=== PATIENT | female | born 1955 | race Caucasian/White ===

== ENCOUNTER 2019-05-06 09:47 | Inpatient (IN) ==
[2019-05-06] MEDS ORDERED: SODIUM CHLORIDE 0.9% 2,000 ML IV STA (10:17)
[2019-05-06] MEDS ORDERED: SODIUM BICARBONATE 50 MEQ/50 ML VIAL IV STA ×2 (10:23→11:39)
[2019-05-06] MEDS ORDERED: SODIUM BICARBONATE 50 MEQ/50 ML SYRINGE IV ONE ×2 (10:24→11:39)
[2019-05-06 10:33] LABS: Basophils # 0.1 10*3/uL (0.0-0.2); Basophils % 0.4 % (0.0-0.8); Eosinophils % 0.1 % (0.00-10.9); Hematocrit 29.9 VOL% (35.7-47.0); Hemoglobin 9.9 GM/DL (12.0-16.0); INR 1.2; Immature Granulocytes % 2.1 %; Immature Granulocytes Absolute 0.28 #; Lymphocytes # 0.9 10*3/uL (1.4-4.0); Mean Corpuscular HGB Conc 33.1 GM/DL (32-36); Mean Corpuscular Volume 97.4 FL (87-102); Mean Platelet Volume 10.2 FL (9.6-12.0); Neutrophils % 84.4 % (38.7-73.9); PT Patient Result 12.6 SECS (9.6-12.2); Platelet Count 150 T/CUMM (130-400); Red Blood Count 3.07 MC/CUMM (3.8-5.5); Red Cell Distribution Width 13.5 % (9.3-17.3); White Blood Count 13.4 T/CUMM (4-12)
[2019-05-06 10:35] LABS: Albumin 1.8 G/DL (3.4-5.0); Bilirubin,Total 0.7 MG/DL (0.2-1.0); Calcium 6.4 MG/DL (8.5-10.1); Osmolality,Calculated 279.8 MOS/KG (273-304); Total Protein 4.7 G/DL (6.4-8.3)
[2019-05-06 10:47] LABS: Apearance,Urine CLEAR (Clear); Bacteria,Urine Occasional /HPF (Few); Bilirubin,Urine Negative (Negative); Blood, Urine Small mg/dL (Negative); Glucose,Urine (UA) Negative (Negative); Ketones,Urine 5 mg/dL (Negative); Nitrite,Urine Negative (Negative); Protein,Urine Negative; RBC,Urine <1 /HPF (0-4); Urine Color Yellow (Yellow); Urine Specific Gravity 1.011 (1.001-1.035); Urine Urobilinogen < 2.0 EU/DL (0.2-1.0); WBC,Urine 1 /HPF (0-6)
[2019-05-06] MEDS ORDERED: DOPamine 800 MG/250 ML PREMIX IV ONE (10:53)
[2019-05-06] MEDS ORDERED: POTASSIUM CHLORIDE RIDER 100 ML IV ONE ×2 (10:54→12:09)
[2019-05-06 10:55] LABS: Barbiturates Screen,Urine Negative (Negative); Benzodiazepines Screen,Urine Negative (Negative); Cannabinoid Screen,Urine Negative (Negative); Opiate Screen,Urine Negative (Negative); Phencyclidine Screen,Urine Negative (Negative)
[2019-05-06 10:55] LABS: CKMB % 1.7 %; Troponin I < 0.015 NG/ML (0.00-0.045)
[2019-05-06] MEDS ORDERED: POTASSIUM CHLORIDE RIDER 20 MEQ in PREMIX 1 EACH IV STA (10:59)
[2019-05-06] MEDS ORDERED: DOPamine 800 MG/250 ML PREMIX IV PRN (10:59)
[2019-05-06 11:17] LABS: Band Neutrophils 8 % (0-10); Burr Cells 1+; Lymphocytes 6 % (20-55); Platelet Estimate Adequate; Polychromasia Slight; Segmented Neutrophils 85 % (50-85); Total Cells Counted 100
[2019-05-06] MEDS ORDERED: SODIUM CHLORIDE 0.9% 1,000 ML IV STA (11:39)
[2019-05-06 13:23] LABS: Basophils # 0.2 10*3/uL (0.0-0.2); Basophils % 0.8 % (0.0-0.8); Hematocrit 36.4 VOL% (35.7-47.0); Immature Granulocytes % 2.1 %; Immature Granulocytes Absolute 0.44 #; Lymphocytes # 0.9 10*3/uL (1.4-4.0); Lymphocytes % 4.2 % (21.3-54.2); Mean Corpuscular HGB Conc 33.2 GM/DL (32-36); Mean Corpuscular Volume 95.3 FL (87-102); Mean Platelet Volume 9.9 FL (9.6-12.0); Monocytes % 5.4 % (1.7-12.7); Neutrophils % 87.5 % (38.7-73.9); Platelet Count 201 T/CUMM (130-400); Red Blood Count 3.82 MC/CUMM (3.8-5.5); Red Cell Distribution Width 13.5 % (9.3-17.3)
[2019-05-06] MEDS ORDERED: CIPROFLOXACIN 500 MG TABLET PO SCH (13:30)
[2019-05-06 13:31] LABS: Hemoglobin 12.1 GM/DL (12.0-16.0)
[2019-05-06 13:32] LABS: Calcium 6.3 MG/DL (8.5-10.1); Osmolality,Calculated 283.5 MOS/KG (273-304)
[2019-05-06] MEDS ORDERED: NOREPINEPHRINE 4 MG/4 ML VIAL IV ONE (13:43)
[2019-05-06 13:51] LABS: Band Neutrophils 3 % (0-10); Lymphocytes 3 % (20-55); Macrocytosis Slight; Platelet Estimate Adequate; Polychromasia Slight; Segmented Neutrophils 87 % (50-85); Total Cells Counted 100
[2019-05-06] MEDS: NOREPINEPHRINE 8 MG in SODIUM CHLORIDE 0.9% 242 ML IV PRN ×2 (14:30→20:37)
[2019-05-06] MEDS ORDERED: MAGNESIUM SULF RIDER 4 GM in PREMIX 1 EACH IV PRN (15:44)
[2019-05-06] MEDS ORDERED: DIPHENOXYLATE/ATROPINE 2.5-0.025 MG TABLET PO PRN (16:10)
[2019-05-06] MEDS ORDERED: CHOLESTYRAMINE 4 GM PACK PO SCH (16:30)
[2019-05-06] MEDS: MEROPENEM 1,000 MG in SODIUM CHLORIDE 0.9% 100 ML IV SCH (16:40)
[2019-05-06] MEDS ORDERED: CALCIUM GLUCONATE 1,000 MG in SODIUM CHLORIDE 0.9% 100 ML IV ONE (17:00)
[2019-05-06] MEDS: SODIUM CHLOR 0.9% KCL 40 MEQ 40 MEQ/1,000 ML BAG IV SCH (17:09)
[2019-05-06] MEDS: MAGNESIUM SULF RIDER 2 GM in PREMIX 1 EACH IV PRN (17:21)
[2019-05-06] MEDS: MAGNESIUM OXIDE 400 MG TABLET PO SCH (20:34)
[2019-05-06] MEDS: CALCIUM CARBONATE CHEW 500 MG TABLET PO SCH (20:34)
[2019-05-06] MEDS: POTASSIUM CHLORIDE 10 MEQ TABLET PO SCH (20:34)
[2019-05-06] MEDS: ENOXAPARIN 30 MG/0.3 ML SYRINGE SUBCUT SCH (20:34)
[2019-05-07] MEDS: SODIUM CHLOR 0.9% KCL 40 MEQ 40 MEQ/1,000 ML BAG IV SCH ×2 (01:33→09:36)
[2019-05-07] MEDS: NOREPINEPHRINE 8 MG in SODIUM CHLORIDE 0.9% 242 ML IV PRN ×2 (02:23→08:51)
[2019-05-07] MEDS: MEROPENEM 1,000 MG in SODIUM CHLORIDE 0.9% 100 ML IV SCH ×2 (08:37→17:50)
[2019-05-07] MEDS: CALCIUM CARBONATE CHEW 500 MG TABLET PO SCH ×2 (09:06→21:33)
[2019-05-07] MEDS: POTASSIUM CHLORIDE 10 MEQ TABLET PO SCH ×2 (09:06→22:33)
[2019-05-07] MEDS: MAGNESIUM OXIDE 400 MG TABLET PO SCH ×2 (09:07→21:34)
[2019-05-07 09:24] LABS: Basophils # 0.2 10*3/uL (0.0-0.2); Basophils % 0.7 % (0.0-0.8); Hematocrit 42.1 VOL% (35.7-47.0); Hemoglobin 14.1 GM/DL (12.0-16.0); Immature Granulocytes % 4.7 %; Immature Granulocytes Absolute 1.11 #; Lymphocytes # 1.4 10*3/uL (1.4-4.0); Lymphocytes % 5.8 % (21.3-54.2); Mean Corpuscular HGB Conc 33.5 GM/DL (32-36); Mean Corpuscular Volume 95.2 FL (87-102); Monocytes % 5.6 % (1.7-12.7); Neutrophils % 83.2 % (38.7-73.9); Platelet Count 247 T/CUMM (130-400); Red Blood Count 4.42 MC/CUMM (3.8-5.5); Red Cell Distribution Width 13.9 % (9.3-17.3); White Blood Count 23.8 T/CUMM (4-12)
[2019-05-07 09:42] LABS: Band Neutrophils 4 % (0-10); Lymphocytes 6 % (20-55); Platelet Estimate Adequate; Segmented Neutrophils 84 % (50-85); Total Cells Counted 100
[2019-05-07 10:05] LABS: Albumin 1.7 G/DL (3.4-5.0); Bilirubin,Total 0.5 MG/DL (0.2-1.0); Calcium 6.6 MG/DL (8.5-10.1); Osmolality,Calculated 275.1 MOS/KG (273-304); Total Protein 5.1 G/DL (6.4-8.3)
[2019-05-07] MEDS: VANCOMYCIN 50 MG/ML 60 ML/BOTTLE PO SCH ×2 (11:08→18:10)
[2019-05-07] MEDS ORDERED: FUROSEMIDE 20 MG/2 ML VIAL IV ONE (12:59)
[2019-05-07] MEDS ORDERED: ZINC OXIDE PASTE 113 GM TUBE TOP PRN (13:01)
[2019-05-07] MEDS: SODIUM CHLORIDE 0.9% 1,000 ML IV SCH (13:02)
[2019-05-07 14:37] LABS: Calcium 6.5 MG/DL (8.5-10.1)
[2019-05-07] MEDS: ENOXAPARIN 30 MG/0.3 ML SYRINGE SUBCUT SCH (21:34)
[2019-05-07] MEDS ORDERED: ALBUMIN 25% 25 GM in PREMIX 1 EACH IV ONE (22:46)
[2019-05-07 23:18] LABS: ABG Base Excess -14.1 MMOL/L (-2.5-2.5); ABG HCO3 13.8 MMOL/L (20-26); ABG Oxygen Saturation 92.9 % (95-100); ABG PH 7.314 (7.35-7.45); ABG PO2 68.8 MM HG (80-95); ABG TCO2 9.2 MMOL/L (23-27); Allen Test Positive
[2019-05-07 23:30] LABS: ABG PCO2 20.8 MM HG (35-48)
[2019-05-08] MEDS ORDERED: ALBUMIN 25% 25 GM in PREMIX 1 EACH IV ONE (00:29)
[2019-05-08] MEDS ORDERED: FUROSEMIDE 40 MG/4 ML VIAL IV ONE ×2 (00:30→01:30)
[2019-05-08] MEDS: SODIUM CHLORIDE 0.9% 1,000 ML IV SCH ×4 (00:40→23:20)
[2019-05-08] MEDS: VANCOMYCIN 50 MG/ML 60 ML/BOTTLE PO SCH ×5 (00:42→23:22)
[2019-05-08] MEDS: MEROPENEM 1,000 MG in SODIUM CHLORIDE 0.9% 100 ML IV SCH (04:15)
[2019-05-08] MEDS ORDERED: ALBUTEROL/IPRATROPIUM 3 ML NEB RESP TX PRN (04:24)
[2019-05-08 06:09] LABS: Basophils # 0.2 10*3/uL (0.0-0.2); Basophils % 0.8 % (0.0-0.8); Hematocrit 38.5 VOL% (35.7-47.0); Hemoglobin 12.6 GM/DL (12.0-16.0); Immature Granulocytes % 4.6 %; Immature Granulocytes Absolute 1.07 #; Lymphocytes # 1.4 10*3/uL (1.4-4.0); Lymphocytes % 5.8 % (21.3-54.2); Mean Corpuscular HGB Conc 32.7 GM/DL (32-36); Mean Platelet Volume 9.9 FL (9.6-12.0); Monocytes % 4.4 % (1.7-12.7); Neutrophils % 84.4 % (38.7-73.9); Platelet Count 230 T/CUMM (130-400); Red Blood Count 4.01 MC/CUMM (3.8-5.5); Red Cell Distribution Width 14.3 % (9.3-17.3); White Blood Count 23.3 T/CUMM (4-12)
[2019-05-08 06:19] LABS: Band Neutrophils 6 % (0-10); Lymphocytes 7 % (20-55); Metamyelocytes 1 %; Segmented Neutrophils 84 % (50-85); Total Cells Counted 100
[2019-05-08 06:20] LABS: Microcytosis 1+; Platelet Estimate Normal
[2019-05-08 08:07] LABS: Calcium 6.9 MG/DL (8.5-10.1); Osmolality,Calculated 275.2 MOS/KG (273-304)
[2019-05-08] MEDS ORDERED: FUROSEMIDE 20 MG/2 ML VIAL IV ONE (08:56)
[2019-05-08] MEDS: CALCIUM CARBONATE CHEW 500 MG TABLET PO SCH ×2 (09:17→21:27)
[2019-05-08] MEDS: POTASSIUM CHLORIDE 10 MEQ TABLET PO SCH ×2 (09:17→21:27)
[2019-05-08] MEDS: MAGNESIUM OXIDE 400 MG TABLET PO SCH ×2 (09:17→21:27)
[2019-05-08] MEDS: ALBUTEROL/IPRATROPIUM 3 ML NEB RESP TX SCH ×3 (14:03→22:59)
[2019-05-08] MEDS: ENOXAPARIN 30 MG/0.3 ML SYRINGE SUBCUT SCH (21:26)
[2019-05-09] MEDS: ALBUTEROL/IPRATROPIUM 3 ML NEB RESP TX SCH ×5 (04:04→20:20)
[2019-05-09] MEDS ORDERED: FUROSEMIDE 40 MG/4 ML VIAL IV ONE (04:35)
[2019-05-09] MEDS ORDERED: methylPREDNISolone SOD SUC 40 MG/1 ML VIAL ONE (04:50)
[2019-05-09] MEDS: methylPREDNISolone SOD SUC 40 MG/1 ML VIAL IV SCH ×3 (04:59→20:36)
[2019-05-09] MEDS: VANCOMYCIN 50 MG/ML 60 ML/BOTTLE PO SCH ×3 (05:05→18:02)
[2019-05-09] MEDS: metroNIDAZOLE INJ 500 MG in PREMIX 1 EACH IV SCH ×3 (05:05→20:35)
[2019-05-09 05:21] LABS: ABG Base Excess -10.2 MMOL/L (-2.5-2.5); ABG HCO3 16.4 MMOL/L (20-26); ABG Oxygen Saturation 93.9 % (95-100); ABG PCO2 22.2 MM HG (35-48); ABG PO2 69.9 MM HG (80-95); ABG TCO2 11.4 MMOL/L (23-27)
[2019-05-09] MEDS: CALCIUM CARBONATE CHEW 500 MG TABLET PO SCH ×2 (08:19→20:38)
[2019-05-09] MEDS: MAGNESIUM OXIDE 400 MG TABLET PO SCH ×2 (08:19→20:38)
[2019-05-09] MEDS: POTASSIUM CHLORIDE 10 MEQ TABLET PO SCH ×2 (08:19→20:38)
[2019-05-09 09:12] LABS: ABG Base Excess -11.2 MMOL/L (-2.5-2.5); ABG HCO3 11.3 MMOL/L (20-26); ABG Oxygen Saturation 91.6 % (95-100); ABG PH 7.382 (7.35-7.45); ABG PO2 62.9 MM HG (80-95); ABG TCO2 11.9 MMOL/L (23-27); Allen Test Positive; Pt O2 Delivery Device Other
[2019-05-09 09:15] LABS: ABG PCO2 19.4 MM HG (35-48)
[2019-05-09 13:34] LABS: Albumin 2.2 G/DL (3.4-5.0); Bilirubin,Total 0.4 MG/DL (0.2-1.0); Calcium 7.8 MG/DL (8.5-10.1); Osmolality,Calculated 279.4 MOS/KG (273-304); Total Protein 5.6 G/DL (6.4-8.3)
[2019-05-09 13:35] LABS: Hematocrit 35.9 VOL% (35.7-47.0); Hemoglobin 12.3 GM/DL (12.0-16.0); Immature Granulocytes % 6.5 %; Immature Granulocytes Absolute 1.51 #; Lymphocytes % 4.5 % (21.3-54.2); Mean Corpuscular HGB Conc 34.3 GM/DL (32-36); Mean Corpuscular Volume 93.7 FL (87-102); Mean Platelet Volume 9.7 FL (9.6-12.0); Monocytes % 1.5 % (1.7-12.7); NRBC # 0.02 10*3/uL; Neutrophils % 87.5 % (38.7-73.9); Platelet Count 168 T/CUMM (130-400); Red Blood Count 3.83 MC/CUMM (3.8-5.5); Red Cell Distribution Width 14.4 % (9.3-17.3); White Blood Count 23.3 T/CUMM (4-12)
[2019-05-09] MEDS: SODIUM CHLORIDE 0.9% 1,000 ML IV SCH (13:35)
[2019-05-09] MEDS: SODIUM BICARB INJ 100 MEQ in SODIUM CHLORIDE 0.45% 1,000 ML IV SCH (13:37)
[2019-05-09 13:56] LABS: Band Neutrophils 10 % (0-10); Lymphocytes 3 % (20-55); Macrocytosis Slight; Metamyelocytes 1 %; Platelet Estimate Normal; Segmented Neutrophils 85 % (50-85); Total Cells Counted 100; Toxic Granulation 1+
[2019-05-09] MEDS: ENOXAPARIN 30 MG/0.3 ML SYRINGE SUBCUT SCH (20:36)
[2019-05-10] MEDS: VANCOMYCIN 50 MG/ML 60 ML/BOTTLE PO SCH ×4 (00:13→18:39)
[2019-05-10] MEDS: ALBUTEROL/IPRATROPIUM 3 ML NEB RESP TX SCH ×7 (00:20→23:35)
[2019-05-10] MEDS: metroNIDAZOLE INJ 500 MG in PREMIX 1 EACH IV SCH ×3 (04:15→21:50)
[2019-05-10] MEDS: methylPREDNISolone SOD SUC 40 MG/1 ML VIAL IV SCH ×3 (05:11→21:50)
[2019-05-10 05:19] LABS: Hematocrit 38.5 VOL% (35.7-47.0); Hemoglobin 13.2 GM/DL (12.0-16.0); Immature Granulocytes % 8.1 %; Immature Granulocytes Absolute 1.85 #; Lymphocytes # 1.1 10*3/uL (1.4-4.0); Lymphocytes % 4.7 % (21.3-54.2); Mean Corpuscular HGB Conc 34.3 GM/DL (32-36); Mean Corpuscular Volume 92.1 FL (87-102); Mean Platelet Volume 9.5 FL (9.6-12.0); Monocytes % 2.2 % (1.7-12.7); NRBC # 0.06 10*3/uL; Platelet Count 227 T/CUMM (130-400); Red Blood Count 4.18 MC/CUMM (3.8-5.5); Red Cell Distribution Width 14.1 % (9.3-17.3); White Blood Count 22.8 T/CUMM (4-12)
[2019-05-10 05:46] LABS: Band Neutrophils 2 % (0-10); Hypochromasia Slight; Lymphocytes 4 % (20-55); Nucleated Red Blood Cells 1 (0-5); Platelet Estimate Adequate; Segmented Neutrophils 88 % (50-85); Total Cells Counted 100
[2019-05-10 05:47] LABS: Microcytosis Slight
[2019-05-10 05:56] LABS: Albumin 2.2 G/DL (3.4-5.0); Bilirubin,Total 0.4 MG/DL (0.2-1.0); Calcium 8.5 MG/DL (8.5-10.1); Osmolality,Calculated 282.1 MOS/KG (273-304); Total Protein 5.3 G/DL (6.4-8.3)
[2019-05-10] MEDS: BISACODYL 5 MG TABLET PO SCH ×3 (07:37→23:18)
[2019-05-10] MEDS: POTASSIUM CHLORIDE 10 MEQ TABLET PO SCH ×2 (09:00→21:50)
[2019-05-10] MEDS: CALCIUM CARBONATE CHEW 500 MG TABLET PO SCH ×2 (09:00→21:50)
[2019-05-10] MEDS: MAGNESIUM OXIDE 400 MG TABLET PO SCH ×2 (09:00→21:50)
[2019-05-10] MEDS ORDERED: GLUCAGON 1 MG VIAL IM PRN (13:29)
[2019-05-10] MEDS ORDERED: DEXTROSE 10% 250 ML BAG IV PRN (13:29)
[2019-05-10] MEDS: SODIUM BICARB INJ 100 MEQ in SODIUM CHLORIDE 0.45% 1,000 ML IV SCH ×2 (14:44→14:50)
[2019-05-10] MEDS: FAT EMULSION 20% 250 ML IV SCH (14:45)
[2019-05-10] MEDS ORDERED: DEXTROSE 10% 1,000 ML IV PRN (16:00)
[2019-05-10 16:34] LABS: Lymphocytes,Pleural Fluid 12 %; Monocytes,Pleural Fluid 1 %; Neutrophils,Pleural Fluid 87 %; RBC,Pleural Fluid 219 T/CUMM
[2019-05-10] MEDS: TRACE ELEMENTS (5) 1 ML, MULTIVITAMIN INJ 10 ML in AMINO ACIDS 10% 700 ML, DEXTROSE 70%... IV SCH (17:33)
[2019-05-10] MEDS: INSULIN REGULAR 100 UNIT/ML SUBCUT SCH (17:48)
[2019-05-10] MEDS ORDERED: POLYETHYLENE GLYCOL POWDER 255 GM BOTTLE PO ONE (18:00)
[2019-05-10] MEDS: ENOXAPARIN 40 MG/0.4 ML SYRINGE SUBCUT SCH (21:50)
[2019-05-11] MEDS: VANCOMYCIN 50 MG/ML 60 ML/BOTTLE PO SCH ×5 (00:56→23:48)
[2019-05-11] MEDS: INSULIN REGULAR 100 UNIT/ML SUBCUT SCH ×5 (00:56→23:49)
[2019-05-11] MEDS: ALBUTEROL/IPRATROPIUM 3 ML NEB RESP TX SCH ×6 (03:02→23:40)
[2019-05-11] MEDS: metroNIDAZOLE INJ 500 MG in PREMIX 1 EACH IV SCH (05:20)
[2019-05-11] MEDS: methylPREDNISolone SOD SUC 40 MG/1 ML VIAL IV SCH (05:30)
[2019-05-11 05:32] LABS: Basophils % 0.1 % (0.0-0.8); Hematocrit 39.8 VOL% (35.7-47.0); Hemoglobin 13.3 GM/DL (12.0-16.0); Immature Granulocytes % 8.4 %; Lymphocytes # 1.1 10*3/uL (1.4-4.0); Lymphocytes % 3.7 % (21.3-54.2); Mean Corpuscular HGB Conc 33.4 GM/DL (32-36); Mean Corpuscular Volume 93.9 FL (87-102); Mean Platelet Volume 9.7 FL (9.6-12.0); Monocytes % 3.6 % (1.7-12.7); NRBC # 0.16 10*3/uL; Neutrophils % 84.2 % (38.7-73.9); Platelet Count 242 T/CUMM (130-400); Red Blood Count 4.24 MC/CUMM (3.8-5.5); Red Cell Distribution Width 14.4 % (9.3-17.3); White Blood Count 28.6 T/CUMM (4-12)
[2019-05-11 05:56] LABS: Albumin 2.3 G/DL (3.4-5.0); Bilirubin,Total 0.4 MG/DL (0.2-1.0); Calcium 8.6 MG/DL (8.5-10.1); Osmolality,Calculated 291.4 MOS/KG (273-304); Total Protein 5.1 G/DL (6.4-8.3)
[2019-05-11 05:59] LABS: Lymphocytes 3 % (20-55); Platelet Estimate Normal; Segmented Neutrophils 95 % (50-85); Total Cells Counted 100
[2019-05-11 06:00] LABS: Prealbumin 9.3 MG/DL (20-40)
[2019-05-11] MEDS ORDERED: KETAMINE 500 MG/10 ML VIAL ONE (08:25)
[2019-05-11] MEDS ORDERED: MIDAZOLAM 2 MG/2 ML VIAL ONE (08:26)
[2019-05-11] MEDS ORDERED: ONDANSETRON 4 MG/2 ML VIAL ONE (08:55)
[2019-05-11] MEDS ORDERED: ONDANSETRON 4 MG/2 ML VIAL IV PRN (09:01)
[2019-05-11] MEDS: SODIUM BICARB INJ 100 MEQ in SODIUM CHLORIDE 0.45% 1,000 ML IV SCH (10:01)
[2019-05-11] MEDS: CALCIUM CARBONATE CHEW 500 MG TABLET PO SCH ×2 (10:01→20:16)
[2019-05-11] MEDS: POTASSIUM CHLORIDE 10 MEQ TABLET PO SCH ×2 (10:03→20:17)
[2019-05-11] MEDS: MAGNESIUM OXIDE 400 MG TABLET PO SCH ×2 (10:03→20:17)
[2019-05-11] MEDS: FAT EMULSION 20% 250 ML IV SCH (15:10)
[2019-05-11] MEDS: TRACE ELEMENTS (5) 1 ML, MULTIVITAMIN INJ 10 ML in AMINO ACIDS 10% 700 ML, DEXTROSE 70%... IV SCH (16:14)
[2019-05-11] MEDS: ENOXAPARIN 40 MG/0.4 ML SYRINGE SUBCUT SCH (20:17)
[2019-05-12] MEDS: SODIUM BICARB INJ 100 MEQ in SODIUM CHLORIDE 0.45% 1,000 ML IV SCH (04:15)
[2019-05-12 04:19] LABS: Basophils % 0.1 % (0.0-0.8); Hemoglobin 14.2 GM/DL (12.0-16.0); Immature Granulocytes % 9.4 %; Immature Granulocytes Absolute 2.63 #; Lymphocytes % 10.8 % (21.3-54.2); Mean Corpuscular Volume 95.6 FL (87-102); Mean Platelet Volume 9.7 FL (9.6-12.0); Monocytes % 4.4 % (1.7-12.7); NRBC # 0.19 10*3/uL; Neutrophils % 75.3 % (38.7-73.9); Platelet Count 225 T/CUMM (130-400); Red Cell Distribution Width 14.4 % (9.3-17.3); White Blood Count 27.9 T/CUMM (4-12)
[2019-05-12 04:29] LABS: Albumin 2.1 G/DL (3.4-5.0); Bilirubin,Total 0.6 MG/DL (0.2-1.0); Calcium 7.9 MG/DL (8.5-10.1); Osmolality,Calculated 289.3 MOS/KG (273-304); Total Protein 4.3 G/DL (6.4-8.3)
[2019-05-12] MEDS: ALBUTEROL/IPRATROPIUM 3 ML NEB RESP TX SCH ×6 (04:33→23:36)
[2019-05-12 04:43] LABS: Hypochromasia 1+; Lymphocytes 12 % (20-55); Platelet Estimate Adequate; Segmented Neutrophils 84 % (50-85); Total Cells Counted 100
[2019-05-12 04:44] LABS: Microcytosis Slight
[2019-05-12] MEDS: VANCOMYCIN 50 MG/ML 60 ML/BOTTLE PO SCH ×3 (05:26→18:00)
[2019-05-12] MEDS: INSULIN REGULAR 100 UNIT/ML SUBCUT SCH ×4 (05:27→23:49)
[2019-05-12] MEDS: CALCIUM CARBONATE CHEW 500 MG TABLET PO SCH ×2 (09:02→20:17)
[2019-05-12] MEDS: POTASSIUM CHLORIDE 10 MEQ TABLET PO SCH ×2 (09:02→20:18)
[2019-05-12] MEDS: MAGNESIUM OXIDE 400 MG TABLET PO SCH (09:02)
[2019-05-12] MEDS: TRACE ELEMENTS (5) 1 ML, MULTIVITAMIN INJ 10 ML in AMINO ACIDS 10% 700 ML, DEXTROSE 70%... IV SCH (16:06)
[2019-05-12] MEDS: FAT EMULSION 20% 250 ML IV SCH (16:07)
[2019-05-12] MEDS: MAGNESIUM CHLORIDE 64 MG TABLET PO SCH (20:17)
[2019-05-12] MEDS: ENOXAPARIN 40 MG/0.4 ML SYRINGE SUBCUT SCH (20:18)
[2019-05-12] MEDS ORDERED: FUROSEMIDE 40 MG/4 ML VIAL IV ONE (21:24)
[2019-05-13] MEDS: VANCOMYCIN 50 MG/ML 60 ML/BOTTLE PO SCH ×4 (00:09→17:55)
[2019-05-13] MEDS: ALBUTEROL/IPRATROPIUM 3 ML NEB RESP TX SCH ×6 (02:15→23:48)
[2019-05-13] MEDS: SODIUM BICARB INJ 100 MEQ in SODIUM CHLORIDE 0.45% 1,000 ML IV SCH ×2 (04:16→17:14)
[2019-05-13 04:26] LABS: Basophils # 0.1 10*3/uL (0.0-0.2); Basophils % 0.6 % (0.0-0.8); Eosinophils # 0.1 10*3/uL (0.0-0.87); Eosinophils % 0.4 % (0.00-10.9); Hematocrit 39.6 VOL% (35.7-47.0); Hemoglobin 13.4 GM/DL (12.0-16.0); Immature Granulocytes % 8.2 %; Immature Granulocytes Absolute 1.74 #; Lymphocytes # 2.6 10*3/uL (1.4-4.0); Lymphocytes % 12.4 % (21.3-54.2); Mean Corpuscular HGB Conc 33.8 GM/DL (32-36); Mean Corpuscular Volume 91.7 FL (87-102); Mean Platelet Volume 9.6 FL (9.6-12.0); NRBC # 0.11 10*3/uL; Neutrophils % 74.4 % (38.7-73.9); Platelet Count 192 T/CUMM (130-400); Red Blood Count 4.32 MC/CUMM (3.8-5.5); Red Cell Distribution Width 14.3 % (9.3-17.3); White Blood Count 21.3 T/CUMM (4-12)
[2019-05-13 04:50] LABS: Band Neutrophils 2 % (0-10); Hypochromasia 1+; Lymphocytes 11 % (20-55); Microcytosis Slight; Platelet Estimate Adequate; Segmented Neutrophils 86 % (50-85); Total Cells Counted 100
[2019-05-13 05:20] LABS: Alanine Aminotransferase 35 U/L (13-56); Albumin 1.6 G/DL (3.4-5.0); Alkaline Phosphatase 59 U/L (45-117); Aspartate Amino Transferase 62 U/L (0-37); Bilirubin,Total < 0.39 MG/DL (0.2-1.0); Blood Urea Nitrogen 23 MG/DL (7-18); Calcium 7.5 MG/DL (8.5-10.1); Estimated Glom Filtration Rate 111 ML/MIN; Glucose 133 MG/DL (74-106); Osmolality,Calculated 278.8 MOS/KG (273-304); Total Protein 4.5 G/DL (6.4-8.3)
[2019-05-13] MEDS: INSULIN REGULAR 100 UNIT/ML SUBCUT SCH ×3 (05:37→17:55)
[2019-05-13] MEDS: POTASSIUM CHLORIDE RIDER 10 MEQ in PREMIX 1 EACH IV PRN ×4 (09:10→12:15)
[2019-05-13] MEDS: MAGNESIUM CHLORIDE 64 MG TABLET PO SCH ×2 (09:30→20:23)
[2019-05-13] MEDS: POTASSIUM CHLORIDE 10 MEQ TABLET PO SCH ×2 (09:30→20:24)
[2019-05-13] MEDS: CALCIUM CARBONATE CHEW 500 MG TABLET PO SCH ×2 (09:30→20:23)
[2019-05-13] MEDS: TRACE ELEMENTS (5) 1 ML, MULTIVITAMIN INJ 10 ML in AMINO ACIDS 10% 700 ML, DEXTROSE 70%... IV SCH (13:28)
[2019-05-13] MEDS: FAT EMULSION 20% 250 ML IV SCH (14:46)
[2019-05-13] MEDS: ENOXAPARIN 40 MG/0.4 ML SYRINGE SUBCUT SCH (20:23)
[2019-05-14] MEDS: VANCOMYCIN 50 MG/ML 60 ML/BOTTLE PO SCH ×4 (00:28→17:53)
[2019-05-14] MEDS: INSULIN REGULAR 100 UNIT/ML SUBCUT SCH ×4 (00:28→18:14)
[2019-05-14] MEDS: SODIUM BICARB INJ 100 MEQ in SODIUM CHLORIDE 0.45% 1,000 ML IV SCH (01:59)
[2019-05-14] MEDS: ALBUTEROL/IPRATROPIUM 3 ML NEB RESP TX SCH ×6 (03:42→23:55)
[2019-05-14 04:21] LABS: Basophils # 0.1 10*3/uL (0.0-0.2); Basophils % 0.3 % (0.0-0.8); Eosinophils # 0.3 10*3/uL (0.0-0.87); Eosinophils % 1.1 % (0.00-10.9); Hematocrit 39.4 VOL% (35.7-47.0); Hemoglobin 13.4 GM/DL (12.0-16.0); Immature Granulocytes % 5.7 %; Immature Granulocytes Absolute 1.34 #; Lymphocytes # 2.9 10*3/uL (1.4-4.0); Lymphocytes % 12.4 % (21.3-54.2); Mean Corpuscular Volume 92.3 FL (87-102); Monocytes % 3.8 % (1.7-12.7); NRBC # 0.06 10*3/uL; Neutrophils % 76.7 % (38.7-73.9); Platelet Count 217 T/CUMM (130-400); Red Blood Count 4.27 MC/CUMM (3.8-5.5); Red Cell Distribution Width 14.6 % (9.3-17.3); White Blood Count 23.5 T/CUMM (4-12)
[2019-05-14 04:48] LABS: Albumin 1.6 G/DL (3.4-5.0); Bilirubin,Total 0.6 MG/DL (0.2-1.0); Osmolality,Calculated 280.5 MOS/KG (273-304)
[2019-05-14 04:56] LABS: Anisocytosis 1+; Band Neutrophils 3 % (0-10); Lymphocytes 12 % (20-55); Macrocytosis Slight; Platelet Estimate Adequate; Polychromasia Slight; Segmented Neutrophils 80 % (50-85); Total Cells Counted 100
[2019-05-14] MEDS: CALCIUM CARBONATE CHEW 500 MG TABLET PO SCH ×2 (08:54→21:38)
[2019-05-14] MEDS: MAGNESIUM CHLORIDE 64 MG TABLET PO SCH ×2 (08:55→21:38)
[2019-05-14] MEDS: POTASSIUM CHLORIDE 10 MEQ TABLET PO SCH ×2 (08:55→21:37)
[2019-05-14] MEDS: TRACE ELEMENTS (5) 1 ML, MULTIVITAMIN INJ 10 ML in AMINO ACIDS 10% 700 ML, DEXTROSE 70%... IV SCH (12:20)
[2019-05-14] MEDS: MEROPENEM 500 MG in SODIUM CHLORIDE 0.9% 100 ML IV SCH ×2 (13:13→17:53)
[2019-05-14] MEDS: metroNIDAZOLE INJ 500 MG in PREMIX 1 EACH IV SCH ×2 (14:41→21:38)
[2019-05-14] MEDS: FAT EMULSION 20% 250 ML IV SCH (14:41)
[2019-05-14] MEDS: ENOXAPARIN 40 MG/0.4 ML SYRINGE SUBCUT SCH (21:37)
[2019-05-15] MEDS: VANCOMYCIN 50 MG/ML 60 ML/BOTTLE PO SCH ×5 (00:59→23:23)
[2019-05-15] MEDS: MEROPENEM 500 MG in SODIUM CHLORIDE 0.9% 100 ML IV SCH ×5 (00:59→23:31)
[2019-05-15] MEDS: INSULIN REGULAR 100 UNIT/ML SUBCUT SCH ×5 (00:59→23:15)
[2019-05-15] MEDS: ALBUTEROL/IPRATROPIUM 3 ML NEB RESP TX SCH ×5 (03:20→20:20)
[2019-05-15] MEDS: metroNIDAZOLE INJ 500 MG in PREMIX 1 EACH IV SCH ×3 (06:00→22:02)
[2019-05-15 08:03] LABS: Basophils # 0.1 10*3/uL (0.0-0.2); Basophils % 0.5 % (0.0-0.8); Eosinophils # 0.3 10*3/uL (0.0-0.87); Eosinophils % 1.5 % (0.00-10.9); Hematocrit 44.7 VOL% (35.7-47.0); Immature Granulocytes % 2.4 %; Immature Granulocytes Absolute 0.49 #; Lymphocytes # 1.8 10*3/uL (1.4-4.0); Lymphocytes % 8.8 % (21.3-54.2); Mean Corpuscular HGB Conc 33.6 GM/DL (32-36); Mean Corpuscular Volume 94.5 FL (87-102); Monocytes % 4.5 % (1.7-12.7); Neutrophils % 82.3 % (38.7-73.9); Platelet Count 238 T/CUMM (130-400); Red Blood Count 4.73 MC/CUMM (3.8-5.5); Red Cell Distribution Width 14.9 % (9.3-17.3); White Blood Count 20.1 T/CUMM (4-12)
[2019-05-15 08:20] LABS: Calcium 7.4 MG/DL (8.5-10.1); Osmolality,Calculated 276.8 MOS/KG (273-304)
[2019-05-15 08:51] LABS: Band Neutrophils 3 % (0-10); Eosinophils 1 % (0-10); Lymphocytes 7 % (20-55); Segmented Neutrophils 86 % (50-85); Total Cells Counted 100
[2019-05-15 08:52] LABS: Hypochromasia 1+
[2019-05-15 08:53] LABS: Microcytosis Slight; Platelet Estimate Normal
[2019-05-15] MEDS: POTASSIUM CHLORIDE 10 MEQ TABLET PO SCH ×2 (08:59→20:04)
[2019-05-15] MEDS: MAGNESIUM CHLORIDE 64 MG TABLET PO SCH ×2 (08:59→20:04)
[2019-05-15] MEDS: CALCIUM CARBONATE CHEW 500 MG TABLET PO SCH ×2 (08:59→20:04)
[2019-05-15] MEDS: MAGNESIUM SULF RIDER 2 GM in PREMIX 1 EACH IV PRN (09:04)
[2019-05-15] MEDS: TRACE ELEMENTS (5) 1 ML, MULTIVITAMIN INJ 10 ML in AMINO ACIDS 10% 700 ML, DEXTROSE 70%... IV SCH (09:20)
[2019-05-15] MEDS ORDERED: FUROSEMIDE 20 MG/2 ML VIAL ONE (09:36)
[2019-05-15] MEDS ORDERED: FUROSEMIDE 20 MG/2 ML VIAL IV ONE (10:00)
[2019-05-15] MEDS: POTASSIUM CHLORIDE RIDER 10 MEQ in PREMIX 1 EACH IV PRN ×3 (13:17→20:11)
[2019-05-15] MEDS: FAT EMULSION 20% 250 ML IV SCH (15:08)
[2019-05-15] MEDS: ENOXAPARIN 40 MG/0.4 ML SYRINGE SUBCUT SCH (20:05)
[2019-05-16] MEDS: ALBUTEROL/IPRATROPIUM 3 ML NEB RESP TX SCH ×7 (00:46→23:21)
[2019-05-16 04:36] LABS: Basophils # 0.1 10*3/uL (0.0-0.2); Basophils % 0.3 % (0.0-0.8); Eosinophils # 0.2 10*3/uL (0.0-0.87); Eosinophils % 1.2 % (0.00-10.9); Hematocrit 39.4 VOL% (35.7-47.0); Hemoglobin 13.2 GM/DL (12.0-16.0); Immature Granulocytes % 1.6 %; Immature Granulocytes Absolute 0.26 #; Lymphocytes # 1.6 10*3/uL (1.4-4.0); Lymphocytes % 9.8 % (21.3-54.2); Mean Corpuscular HGB Conc 33.5 GM/DL (32-36); Mean Corpuscular Volume 94.5 FL (87-102); Mean Platelet Volume 10.2 FL (9.6-12.0); Monocytes % 5.4 % (1.7-12.7); Neutrophils % 81.7 % (38.7-73.9); Platelet Count 242 T/CUMM (130-400); Red Blood Count 4.17 MC/CUMM (3.8-5.5); Red Cell Distribution Width 14.9 % (9.3-17.3); White Blood Count 15.9 T/CUMM (4-12)
[2019-05-16 05:06] LABS: Calcium 7.8 MG/DL (8.5-10.1); Osmolality,Calculated 282.4 MOS/KG (273-304)
[2019-05-16] MEDS: INSULIN REGULAR 100 UNIT/ML SUBCUT SCH ×3 (05:20→17:36)
[2019-05-16] MEDS: VANCOMYCIN 50 MG/ML 60 ML/BOTTLE PO SCH ×4 (05:21→23:52)
[2019-05-16] MEDS: MEROPENEM 500 MG in SODIUM CHLORIDE 0.9% 100 ML IV SCH ×4 (05:30→23:50)
[2019-05-16] MEDS: metroNIDAZOLE INJ 500 MG in PREMIX 1 EACH IV SCH ×3 (05:30→22:08)
[2019-05-16] MEDS: TRACE ELEMENTS (5) 1 ML, MULTIVITAMIN INJ 10 ML in AMINO ACIDS 10% 700 ML, DEXTROSE 70%... IV SCH ×2 (05:56→07:59)
[2019-05-16] MEDS: MAGNESIUM SULF RIDER 2 GM in PREMIX 1 EACH IV PRN (05:58)
[2019-05-16] MEDS: POTASSIUM CHLORIDE RIDER 10 MEQ in PREMIX 1 EACH IV PRN ×3 (05:58→11:04)
[2019-05-16] MEDS ORDERED: FUROSEMIDE 40 MG/4 ML VIAL IV ONE (08:12)
[2019-05-16] MEDS: POTASSIUM CHLORIDE 10 MEQ TABLET PO SCH ×2 (09:08→20:31)
[2019-05-16] MEDS: CALCIUM CARBONATE CHEW 500 MG TABLET PO SCH ×2 (09:08→20:30)
[2019-05-16] MEDS: MAGNESIUM CHLORIDE 64 MG TABLET PO SCH ×2 (09:08→20:31)
[2019-05-16] MEDS: FAT EMULSION 20% 250 ML IV SCH (14:59)
[2019-05-16] MEDS: ENOXAPARIN 40 MG/0.4 ML SYRINGE SUBCUT SCH (20:32)
[2019-05-17] MEDS: INSULIN REGULAR 100 UNIT/ML SUBCUT SCH ×3 (00:05→11:58)
[2019-05-17 03:29] LABS: Prealbumin 18.3 MG/DL (20-40)
[2019-05-17] MEDS: ALBUTEROL/IPRATROPIUM 3 ML NEB RESP TX SCH ×4 (03:52→14:05)
[2019-05-17] MEDS: TRACE ELEMENTS (5) 1 ML, MULTIVITAMIN INJ 10 ML in AMINO ACIDS 10% 700 ML, DEXTROSE 70%... IV SCH (04:48)
[2019-05-17] MEDS: MEROPENEM 500 MG in SODIUM CHLORIDE 0.9% 100 ML IV SCH ×2 (06:04→12:34)
[2019-05-17] MEDS: VANCOMYCIN 50 MG/ML 60 ML/BOTTLE PO SCH ×2 (06:05→12:34)
[2019-05-17 06:17] VITALS: BP 151/86
[2019-05-17] MEDS: metroNIDAZOLE INJ 500 MG in PREMIX 1 EACH IV SCH (06:34)
[2019-05-17] MEDS: POTASSIUM CHLORIDE 10 MEQ TABLET PO SCH (08:06)
[2019-05-17] MEDS: MAGNESIUM SULF RIDER 2 GM in PREMIX 1 EACH IV PRN (08:06)
[2019-05-17] MEDS: CALCIUM CARBONATE CHEW 500 MG TABLET PO SCH (08:06)
[2019-05-17] MEDS: MAGNESIUM CHLORIDE 64 MG TABLET PO SCH (08:06)
[2019-05-23] MEDS ORDERED: CYANOCOBALAMIN 1000 MCG/1 ML VIAL IM SCH (09:00)
== END 2019-05-17 14:38 | DRG 871 ==
LOC: N.ED 09:47 → N.EDINP 13:04 → SUATTDRO 13:04 → N.CC 13:37
PROVIDERS: ADMIT Family Medicine; ATTEND Family Medicine
PROC: COLONBX (2019-05-11 06:05)

== ENCOUNTER 2019-06-24 02:34 | Inpatient (IN) ==
[2019-06-24] MEDS ORDERED: SODIUM CHLORIDE 0.9% 1,000 ML IV STA (03:12)
[2019-06-24 03:51] LABS: Basophils % 0.3 % (0.0-0.8); Eosinophils % 0.1 % (0.00-10.9); Hematocrit 39.4 VOL% (35.7-47.0); Hemoglobin 12.8 GM/DL (12.0-16.0); Immature Granulocytes % 0.4 %; Immature Granulocytes Absolute 0.06 #; Lymphocytes # 0.8 10*3/uL (1.4-4.0); Mean Corpuscular HGB Conc 32.5 GM/DL (32-36); Mean Platelet Volume 10.3 FL (9.6-12.0); Monocytes % 5.3 % (1.7-12.7); Neutrophils % 87.9 % (38.7-73.9); Platelet Count 189 T/CUMM (130-400); Red Blood Count 4.06 MC/CUMM (3.8-5.5); Red Cell Distribution Width 14.1 % (9.3-17.3); White Blood Count 13.4 T/CUMM (4-12)
[2019-06-24 04:01] LABS: ABG HCO3 23.4 MMOL/L (20-26); ABG PCO2 32.5 MM HG (35-48); ABG PH 7.445 (7.35-7.45); ABG PO2 52.1 MM HG (80-95); ABG TCO2 19.7 MMOL/L (23-27)
[2019-06-24 04:11] LABS: Albumin 3.7 G/DL (3.4-5.0); Bilirubin,Total 1.2 MG/DL (0.2-1.0); Calcium 8.9 MG/DL (8.5-10.1); Osmolality,Calculated 274.7 MOS/KG (273-304); Total Protein 6.9 G/DL (6.4-8.3)
[2019-06-24 04:12] LABS: Apearance,Urine CLEAR (Clear); Bilirubin,Urine Negative (Negative); Blood, Urine Negative (Negative); Glucose,Urine (UA) Negative (Negative); Ketones,Urine 20 mg/dL (Negative); Mucus,Urine Occasional /LPF (Occasional); Nitrite,Urine Negative (Negative); Protein,Urine Negative; RBC,Urine 1 /HPF (0-4); Urine Color Yellow (Yellow); Urine Specific Gravity 1.015 (1.001-1.035); Urine Urobilinogen < 2.0 EU/DL (0.2-1.0); WBC,Urine 3 /HPF (0-6)
[2019-06-24] MEDS ORDERED: POTASSIUM CHLORIDE 20 MEQ/15 ML UDCUP PO ONE (04:39)
[2019-06-24] MEDS ORDERED: LEVOFLOXACIN INJ 500 MG in PREMIX 1 EACH IV STA (04:43)
[2019-06-24 04:44] LABS: Barbiturates Screen,Urine Negative (Negative); Benzodiazepines Screen,Urine Negative (Negative); Cannabinoid Screen,Urine Negative (Negative); Opiate Screen,Urine Negative (Negative); Phencyclidine Screen,Urine Negative (Negative)
[2019-06-24] MEDS ORDERED: ACETAMINOPHEN 325 MG TABLET PO PRN (04:52)
[2019-06-24] MEDS ORDERED: ONDANSETRON 4 MG/2 ML VIAL IV PRN (04:52)
[2019-06-24] MEDS ORDERED: LORazepam 2 MG/1 ML VIAL IV STA (05:41)
[2019-06-24] MEDS ORDERED: METOPROLOL TARTRATE 25 MG TABLET ONE (06:15)
[2019-06-24] MEDS: SODIUM CHLORIDE 0.9% 1,000 ML IV SCH ×2 (06:16→15:47)
[2019-06-24 07:31] LABS: Basophils % 0.2 % (0.0-0.8); Hematocrit 39.3 VOL% (35.7-47.0); Hemoglobin 12.5 GM/DL (12.0-16.0); Immature Granulocytes % 0.5 %; Immature Granulocytes Absolute 0.07 #; Lymphocytes # 0.8 10*3/uL (1.4-4.0); Lymphocytes % 5.7 % (21.3-54.2); Mean Corpuscular HGB Conc 31.8 GM/DL (32-36); Mean Platelet Volume 9.9 FL (9.6-12.0); Monocytes % 5.2 % (1.7-12.7); Neutrophils % 88.4 % (38.7-73.9); Platelet Count 166 T/CUMM (130-400); Red Blood Count 3.93 MC/CUMM (3.8-5.5); White Blood Count 13.3 T/CUMM (4-12)
[2019-06-24 08:05] LABS: Albumin 2.9 G/DL (3.4-5.0); Bilirubin,Total 0.8 MG/DL (0.2-1.0); Calcium 8.4 MG/DL (8.5-10.1); Osmolality,Calculated 271.8 MOS/KG (273-304); Total Protein 6.6 G/DL (6.4-8.3)
[2019-06-24] MEDS: PANTOPRAZOLE 40 MG VIAL IV SCH (09:50)
[2019-06-24] MEDS: METOPROLOL TARTRATE 25 MG TABLET PO SCH ×2 (09:56→21:01)
[2019-06-24] MEDS ORDERED: LORazepam 2 MG/1 ML VIAL IV ONE (10:26)
[2019-06-24] MEDS: risperiDONE 0.5 MG TABLET PO SCH ×2 (10:45→20:57)
[2019-06-24] MEDS ORDERED: POLYVINYL ALCOHOL 1.4% OPH SOLN 15 ML BOTTLE BOTH EYES PRN (12:54)
[2019-06-24] MEDS ORDERED: ALBUTEROL/IPRATROPIUM 3 ML NEB RESP TX PRN (12:54)
[2019-06-24] MEDS ORDERED: FUROSEMIDE 40 MG TABLET PO SCH (13:00)
[2019-06-24] MEDS: ALBUTEROL 1.25 MG/3 ML NEB RESP TX SCH (14:30)
[2019-06-24] MEDS: IPRATROPIUM 500 MCG/2.5 ML NEB RESP TX SCH (14:30)
[2019-06-24] MEDS: POTASSIUM CHLORIDE 8 MEQ CAPSULE PO SCH ×2 (15:48→21:02)
[2019-06-24] MEDS: QUEtiapine 25 MG TABLET PO SCH (15:49)
[2019-06-24] MEDS: LEVOTHYROXINE 100 MCG TABLET PO SCH (15:49)
[2019-06-24] MEDS: LORazepam 2 MG/1 ML VIAL IV PRN (20:49)
[2019-06-24] MEDS: methylPREDNISolone SOD SUC 40 MG/1 ML VIAL IV SCH (20:54)
[2019-06-24] MEDS: KETOROLAC 15 MG/1 ML VIAL IV SCH (20:55)
[2019-06-25] MEDS: SODIUM CHLORIDE 0.9% 1,000 ML IV SCH ×2 (01:37→16:33)
[2019-06-25] MEDS: KETOROLAC 15 MG/1 ML VIAL IV SCH ×3 (04:21→21:44)
[2019-06-25] MEDS: methylPREDNISolone SOD SUC 40 MG/1 ML VIAL IV SCH ×2 (04:22→16:23)
[2019-06-25] MEDS: LEVOFLOXACIN INJ 500 MG in PREMIX 1 EACH IV SCH (04:23)
[2019-06-25 04:40] LABS: Basophils % 0.1 % (0.0-0.8); Hematocrit 36.7 VOL% (35.7-47.0); Hemoglobin 12.1 GM/DL (12.0-16.0); Immature Granulocytes % 0.6 %; Immature Granulocytes Absolute 0.09 #; Lymphocytes # 0.5 10*3/uL (1.4-4.0); Mean Corpuscular Volume 97.6 FL (87-102); Mean Platelet Volume 10.5 FL (9.6-12.0); Monocytes % 3.5 % (1.7-12.7); Neutrophils % 92.8 % (38.7-73.9); Platelet Count 187 T/CUMM (130-400); Red Blood Count 3.76 MC/CUMM (3.8-5.5); Red Cell Distribution Width 14.3 % (9.3-17.3)
[2019-06-25 05:13] LABS: Calcium 8.3 MG/DL (8.5-10.1)
[2019-06-25 06:05] LABS: Band Neutrophils 1 % (0-10); Lymphocytes 1 % (20-55); Platelet Estimate Decreased; Polychromasia Few; Segmented Neutrophils 95 % (50-85); Total Cells Counted 100
[2019-06-25] MEDS: risperiDONE 0.5 MG TABLET PO SCH ×2 (08:21→21:44)
[2019-06-25] MEDS: POTASSIUM CHLORIDE 8 MEQ CAPSULE PO SCH ×2 (08:21→21:44)
[2019-06-25] MEDS: METOPROLOL TARTRATE 25 MG TABLET PO SCH ×2 (08:21→21:44)
[2019-06-25] MEDS: QUEtiapine 25 MG TABLET PO SCH (08:22)
[2019-06-25] MEDS: LEVOTHYROXINE 100 MCG TABLET PO SCH (08:22)
[2019-06-25] MEDS: PANTOPRAZOLE 40 MG VIAL IV SCH (08:22)
[2019-06-25] MEDS ORDERED: HALOPERIDOL 5 MG/ML AMP IM ONE (15:50)
[2019-06-25] MEDS ORDERED: LORazepam 2 MG/1 ML VIAL IM ONE (15:51)
[2019-06-25] MEDS: IPRATROPIUM 500 MCG/2.5 ML NEB RESP TX SCH ×4 (18:09→23:32)
[2019-06-25] MEDS: ALBUTEROL 1.25 MG/3 ML NEB RESP TX SCH ×4 (18:11→23:32)
[2019-06-26] MEDS: SODIUM CHLORIDE 0.9% 1,000 ML IV SCH (02:34)
[2019-06-26] MEDS: KETOROLAC 15 MG/1 ML VIAL IV SCH ×3 (05:38→22:06)
[2019-06-26] MEDS: LEVOFLOXACIN INJ 500 MG in PREMIX 1 EACH IV SCH (05:51)
[2019-06-26] MEDS: IPRATROPIUM 500 MCG/2.5 ML NEB RESP TX SCH ×2 (07:26→14:17)
[2019-06-26] MEDS: ALBUTEROL 1.25 MG/3 ML NEB RESP TX SCH ×2 (07:26→14:17)
[2019-06-26] MEDS: METOPROLOL TARTRATE 25 MG TABLET PO SCH ×2 (09:50→22:04)
[2019-06-26] MEDS: POTASSIUM CHLORIDE 8 MEQ CAPSULE PO SCH ×2 (09:50→22:04)
[2019-06-26] MEDS: LEVOTHYROXINE 100 MCG TABLET PO SCH (09:51)
[2019-06-26] MEDS: risperiDONE 0.5 MG TABLET PO SCH ×2 (09:51→22:03)
[2019-06-26] MEDS: PANTOPRAZOLE 40 MG VIAL IV SCH (09:53)
[2019-06-26] MEDS: LORazepam 2 MG/1 ML VIAL IV PRN (16:29)
[2019-06-27] MEDS: ALBUTEROL 1.25 MG/3 ML NEB RESP TX SCH ×3 (00:32→14:44)
[2019-06-27] MEDS: IPRATROPIUM 500 MCG/2.5 ML NEB RESP TX SCH ×3 (00:32→14:44)
[2019-06-27] MEDS: KETOROLAC 15 MG/1 ML VIAL IV SCH ×2 (04:40→13:09)
[2019-06-27] MEDS: LEVOFLOXACIN INJ 500 MG in PREMIX 1 EACH IV SCH (04:52)
[2019-06-27] MEDS ORDERED: LEVOTHYROXINE 88 MCG TABLET PO SCH (06:30)
[2019-06-27] MEDS: METOPROLOL TARTRATE 25 MG TABLET PO SCH (10:27)
[2019-06-27] MEDS: POTASSIUM CHLORIDE 8 MEQ CAPSULE PO SCH (10:27)
[2019-06-27] MEDS: risperiDONE 0.5 MG TABLET PO SCH (10:28)
[2019-06-27] MEDS: PANTOPRAZOLE 40 MG VIAL IV SCH (10:30)
[2019-06-27 15:54] VITALS: BP 146/88
== END 2019-06-27 16:25 | disposition swing bed (61) | DRG 948 ==
LOC: EDBD → EDUNIT# → N.ED 02:34 → N.EDINP 04:51 → N.TELES 05:54
PROVIDERS: ADMIT Family Medicine; ATTEND Family Medicine

== ENCOUNTER 2020-05-07 22:48 | Inpatient (IN) ==
[2020-05-08 00:15] LABS: Basophils % 0.2 % (0.0-0.8); Eosinophils % 0.2 % (0.00-10.9); Hematocrit 42.7 VOL% (35.7-47.0); Hemoglobin 14.4 GM/DL (12.0-16.0); Immature Granulocytes % 0.2 %; Immature Granulocytes Absolute 0.02 #; Lymphocytes # 1.2 10*3/uL (1.4-4.0); Lymphocytes % 12.1 % (21.3-54.2); Mean Corpuscular HGB Conc 33.7 GM/DL (32-36); Mean Corpuscular Volume 92.6 FL (87-102); Mean Platelet Volume 9.9 FL (9.6-12.0); Monocytes % 7.9 % (1.7-12.7); Neutrophils % 79.4 % (38.7-73.9); Platelet Count 167 T/CUMM (130-400); Red Blood Count 4.61 MC/CUMM (3.8-5.5); Red Cell Distribution Width 12.8 % (9.3-17.3); White Blood Count 9.8 T/CUMM (4-12)
[2020-05-08 00:28] LABS: Alanine Aminotransferase 19 U/L (13-56); Albumin 4.3 G/DL (3.4-5.0); Alkaline Phosphatase 88 U/L (45-117); Aspartate Amino Transferase 29 U/L (0-37); Blood Urea Nitrogen 29 MG/DL (7-18); Calcium 10.5 MG/DL (8.5-10.1); Estimated Glom Filtration Rate 46 ML/MIN; Glucose 118 MG/DL (74-106); Osmolality,Calculated 294.7 MOS/KG (273-304); Total Protein 7.8 G/DL (6.4-8.3)
[2020-05-08 00:33] LABS: PT Patient Result 11.1 SECS (9.8-11.9)
[2020-05-08] MEDS ORDERED: SODIUM CHLORIDE 0.9% 1,000 ML IV STA (00:45)
[2020-05-08 01:13] LABS: Bilirubin,Urine Negative (Negative); Blood, Urine Small mg/dL (Negative); Glucose,Urine (UA) Negative (Negative); Hyaline Casts,Urine 31 /LPF (0-3); Ketones,Urine Negative (Negative); Mucus,Urine Occasional /LPF (Occasional); Nitrite,Urine Negative (Negative); Protein,Urine Negative; RBC,Urine 42 /HPF (0-4); Urine Appearance CLOUDY (Clear); Urine Color Yellow (Yellow); Urine Specific Gravity 1.011 (1.001-1.035); Urine Urobilinogen < 2.0 EU/DL (0.2-1.0); WBC,Urine 670 /HPF (0-6)
[2020-05-08 01:16] LABS: Barbiturates Screen,Urine Negative (Negative); Benzodiazepines Screen,Urine Negative (Negative); Cannabinoid Screen,Urine Negative (Negative); Opiate Screen,Urine Negative (Negative); Phencyclidine Screen,Urine Negative (Negative)
[2020-05-08] MEDS ORDERED: ONDANSETRON 4 MG/2 ML VIAL IV PRN (01:20)
[2020-05-08] MEDS ORDERED: ACETAMINOPHEN 325 MG TABLET PO PRN (01:20)
[2020-05-08] MEDS ORDERED: cefTRIAXone 1,000 MG in SODIUM CHLORIDE 0.9% 100 ML IV STA (01:20)
[2020-05-08] MEDS ORDERED: DOCUSATE SODIUM 100 MG CAPSULE PO SCH (09:00)
[2020-05-08] MEDS: SODIUM CHLORIDE 0.45% 1,000 ML IV SCH ×2 (09:26→16:15)
[2020-05-08] MEDS: ENOXAPARIN 40 MG/0.4 ML SYRINGE SUBCUT SCH (10:00)
[2020-05-08] MEDS: DOCUSATE SODIUM 100 MG CAPSULE PO SCH ×2 (10:01→21:00)
[2020-05-08] MEDS: PANTOPRAZOLE 40 MG TABLET PO SCH (10:01)
[2020-05-08] MEDS ORDERED: ZIPRASIDONE 20 MG/1 ML VIAL IM ONE (15:41)
[2020-05-08] MEDS: cefTRIAXone 1,000 MG in SYRINGE 1 EACH IV SCH (16:15)
[2020-05-09] MEDS: SODIUM CHLORIDE 0.45% 1,000 ML IV SCH ×3 (03:12→21:16)
[2020-05-09 05:23] LABS: Basophils % 0.2 % (0.0-0.8); Hematocrit 37.7 VOL% (35.7-47.0); Hemoglobin 12.9 GM/DL (12.0-16.0); Immature Granulocytes Absolute 0.09 #; Lymphocytes # 1.3 10*3/uL (1.4-4.0); Lymphocytes % 14.3 % (21.3-54.2); Mean Corpuscular HGB Conc 34.2 GM/DL (32-36); Mean Platelet Volume 10.3 FL (9.6-12.0); Monocytes % 8.8 % (1.7-12.7); Neutrophils % 75.7 % (38.7-73.9); Platelet Count 175 T/CUMM (130-400); White Blood Count 8.7 T/CUMM (4-12)
[2020-05-09 06:04] LABS: Calcium 8.7 MG/DL (8.5-10.1); Osmolality,Calculated 285.8 MOS/KG (273-304)
[2020-05-09] MEDS ORDERED: MAGNESIUM SULF RIDER 4 GM in PREMIX 1 EACH IV PRN (07:55)
[2020-05-09] MEDS ORDERED: MAGNESIUM SULF RIDER 2 GM in PREMIX 1 EACH IV PRN (07:55)
[2020-05-09] MEDS: DOCUSATE SODIUM 100 MG CAPSULE PO SCH ×2 (11:50→21:16)
[2020-05-09] MEDS: ENOXAPARIN 40 MG/0.4 ML SYRINGE SUBCUT SCH (11:50)
[2020-05-09] MEDS: PANTOPRAZOLE 40 MG TABLET PO SCH (11:50)
[2020-05-09] MEDS: AZITHROMYCIN INJ 500 MG in SODIUM CHLORIDE 0.9% 250 ML IV SCH (11:52)
[2020-05-09] MEDS: cefTRIAXone 1,000 MG in SYRINGE 1 EACH IV SCH (14:21)
[2020-05-09] MEDS ORDERED: TUBERCULIN SKIN TEST 0.1 ML SYRINGE INTRADERM ONE (15:17)
[2020-05-09] MEDS: QUEtiapine 25 MG TABLET PO SCH (21:13)
[2020-05-10 05:23] LABS: Basophils % 0.5 % (0.0-0.8); Eosinophils # 0.1 10*3/uL (0.0-0.87); Eosinophils % 0.9 % (0.00-10.9); Hematocrit 36.5 VOL% (35.7-47.0); Hemoglobin 12.3 GM/DL (12.0-16.0); Immature Granulocytes % 0.2 %; Immature Granulocytes Absolute 0.01 #; Lymphocytes # 1.7 10*3/uL (1.4-4.0); Lymphocytes % 25.7 % (21.3-54.2); Mean Corpuscular HGB Conc 33.7 GM/DL (32-36); Mean Corpuscular Volume 93.6 FL (87-102); Mean Platelet Volume 10.3 FL (9.6-12.0); Monocytes % 8.6 % (1.7-12.7); Neutrophils % 64.1 % (38.7-73.9); Platelet Count 152 T/CUMM (130-400); Red Cell Distribution Width 13.2 % (9.3-17.3); White Blood Count 6.7 T/CUMM (4-12)
[2020-05-10] MEDS: LEVOTHYROXINE 88 MCG TABLET PO SCH (05:51)
[2020-05-10 06:02] LABS: Calcium 8.2 MG/DL (8.5-10.1); Osmolality,Calculated 271.7 MOS/KG (273-304); Thyroid Stimulating Hormone 0.466 uIU/ml (0.358-3.74)
[2020-05-10] MEDS: SODIUM CHLORIDE 0.45% 1,000 ML IV SCH ×3 (10:05→23:07)
[2020-05-10] MEDS: PANTOPRAZOLE 40 MG TABLET PO SCH (10:08)
[2020-05-10] MEDS: DOCUSATE SODIUM 100 MG CAPSULE PO SCH ×2 (10:08→20:23)
[2020-05-10] MEDS: QUEtiapine 25 MG TABLET PO SCH ×2 (10:08→20:20)
[2020-05-10] MEDS: ENOXAPARIN 40 MG/0.4 ML SYRINGE SUBCUT SCH (10:09)
[2020-05-10] MEDS: AZITHROMYCIN INJ 500 MG in SODIUM CHLORIDE 0.9% 250 ML IV SCH (10:09)
[2020-05-10] MEDS: cefTRIAXone 1,000 MG in SYRINGE 1 EACH IV SCH (15:21)
[2020-05-10] MEDS: POTASSIUM CHLORIDE RIDER 10 MEQ in PREMIX 1 EACH IV PRN ×5 (15:25→21:28)
[2020-05-11 01:54] LABS: Basophils % 0.5 % (0.0-0.8); Eosinophils # 0.3 10*3/uL (0.0-0.87); Eosinophils % 4.2 % (0.00-10.9); Hematocrit 36.2 VOL% (35.7-47.0); Hemoglobin 12.4 GM/DL (12.0-16.0); Immature Granulocytes % 0.2 %; Immature Granulocytes Absolute 0.01 #; Lymphocytes # 1.9 10*3/uL (1.4-4.0); Lymphocytes % 31.2 % (21.3-54.2); Mean Corpuscular HGB Conc 34.3 GM/DL (32-36); Mean Corpuscular Volume 90.7 FL (87-102); Mean Platelet Volume 9.8 FL (9.6-12.0); Monocytes % 7.2 % (1.7-12.7); Neutrophils % 56.7 % (38.7-73.9); Platelet Count 154 T/CUMM (130-400); Red Blood Count 3.99 MC/CUMM (3.8-5.5)
[2020-05-11 02:15] LABS: Calcium 7.8 MG/DL (8.5-10.1); Osmolality,Calculated 279.1 MOS/KG (273-304)
[2020-05-11] MEDS: POTASSIUM CHLORIDE 20 MEQ TABLET PO PRN ×4 (03:54→09:59)
[2020-05-11] MEDS: LEVOTHYROXINE 88 MCG TABLET PO SCH (05:52)
[2020-05-11] MEDS: SODIUM CHLORIDE 0.45% 1,000 ML IV SCH ×3 (08:02→16:17)
[2020-05-11] MEDS: AZITHROMYCIN INJ 500 MG in SODIUM CHLORIDE 0.9% 250 ML IV SCH (08:03)
[2020-05-11] MEDS: QUEtiapine 25 MG TABLET PO SCH ×2 (09:59→20:27)
[2020-05-11] MEDS: PANTOPRAZOLE 40 MG TABLET PO SCH (09:59)
[2020-05-11] MEDS: DOCUSATE SODIUM 100 MG CAPSULE PO SCH ×2 (10:00→20:29)
[2020-05-11] MEDS: ENOXAPARIN 40 MG/0.4 ML SYRINGE SUBCUT SCH (10:01)
[2020-05-11] MEDS ORDERED: ROPIVACAINE 0.5% 30 ML VIAL ONE (13:21)
[2020-05-11] MEDS ORDERED: ceFAZolin 1,000 MG in SYRINGE 1 EACH IV ONE (14:00)
[2020-05-11] MEDS ORDERED: ceFAZolin 1,000 MG VIAL ONE (14:40)
[2020-05-11] MEDS ORDERED: SUGAMMADEX 200 MG/2 ML VIAL IV ONE (15:29)
[2020-05-11] MEDS ORDERED: LIDOCAINE 2% 5 ML VIAL ONE (16:11)
[2020-05-11] MEDS ORDERED: propofoL 200 MG/20 ML VIAL IV ONE (16:11)
[2020-05-11] MEDS ORDERED: SEVOFLURANE 1 UNIT/15 MINUTE INH ONE (16:11)
[2020-05-11] MEDS ORDERED: PHENYLEPHRINE DRIP 20 MG/250 ML PREMIX IV ONE (16:11)
[2020-05-11] MEDS ORDERED: fentaNYL 100 MCG/2 ML VIAL ONE (16:11)
[2020-05-11] MEDS ORDERED: DEXAMETHASONE 4 MG/1 ML VIAL ONE (16:12)
[2020-05-11] MEDS ORDERED: ONDANSETRON 4 MG/2 ML VIAL ONE (16:12)
[2020-05-11] MEDS ORDERED: ROCURONIUM 100 MG/10 ML VIAL IV ONE (16:12)
[2020-05-11] MEDS: cefTRIAXone 1,000 MG in SYRINGE 1 EACH IV SCH (18:26)
[2020-05-12] MEDS: SODIUM CHLORIDE 0.45% 1,000 ML IV SCH ×2 (05:22→14:45)
[2020-05-12] MEDS: LEVOTHYROXINE 88 MCG TABLET PO SCH (05:56)
[2020-05-12 06:00] LABS: Basophils % 0.2 % (0.0-0.8); Hematocrit 33.3 VOL% (35.7-47.0); Hemoglobin 11.4 GM/DL (12.0-16.0); Immature Granulocytes % 0.3 %; Immature Granulocytes Absolute 0.02 #; Lymphocytes # 0.9 10*3/uL (1.4-4.0); Lymphocytes % 13.4 % (21.3-54.2); Mean Corpuscular HGB Conc 34.2 GM/DL (32-36); Mean Corpuscular Volume 92.5 FL (87-102); Mean Platelet Volume 10.2 FL (9.6-12.0); Monocytes % 6.9 % (1.7-12.7); Neutrophils % 79.2 % (38.7-73.9); Platelet Count 170 T/CUMM (130-400); Red Cell Distribution Width 13.2 % (9.3-17.3); White Blood Count 6.5 T/CUMM (4-12)
[2020-05-12 06:31] LABS: Calcium 7.7 MG/DL (8.5-10.1); Osmolality,Calculated 275.4 MOS/KG (273-304)
[2020-05-12] MEDS: DOCUSATE SODIUM 100 MG CAPSULE PO SCH ×2 (10:06→21:32)
[2020-05-12] MEDS: ASPIRIN EC 325 MG TABLET PO SCH (10:29)
[2020-05-12] MEDS: AZITHROMYCIN INJ 500 MG in SODIUM CHLORIDE 0.9% 250 ML IV SCH (10:29)
[2020-05-12] MEDS: QUEtiapine 25 MG TABLET PO SCH ×2 (10:29→21:33)
[2020-05-12] MEDS: PANTOPRAZOLE 40 MG TABLET PO SCH (10:29)
[2020-05-12] MEDS: ENOXAPARIN 40 MG/0.4 ML SYRINGE SUBCUT SCH (10:30)
[2020-05-12] MEDS: cefTRIAXone 1,000 MG in SYRINGE 1 EACH IV SCH (16:16)
[2020-05-13 04:45] LABS: Basophils % 0.3 % (0.0-0.8); Eosinophils # 0.2 10*3/uL (0.0-0.87); Eosinophils % 3.1 % (0.00-10.9); Hematocrit 32.2 VOL% (35.7-47.0); Immature Granulocytes % 0.3 %; Immature Granulocytes Absolute 0.02 #; Lymphocytes # 1.8 10*3/uL (1.4-4.0); Lymphocytes % 31.5 % (21.3-54.2); Mean Corpuscular HGB Conc 34.2 GM/DL (32-36); Mean Corpuscular Volume 92.3 FL (87-102); Monocytes % 9.2 % (1.7-12.7); Neutrophils % 55.6 % (38.7-73.9); Platelet Count 180 T/CUMM (130-400); Red Blood Count 3.49 MC/CUMM (3.8-5.5); Red Cell Distribution Width 13.5 % (9.3-17.3); White Blood Count 5.8 T/CUMM (4-12)
[2020-05-13 05:10] LABS: Calcium 7.7 MG/DL (8.5-10.1)
[2020-05-13] MEDS: LEVOTHYROXINE 88 MCG TABLET PO SCH (06:22)
[2020-05-13] MEDS: SODIUM CHLORIDE 0.45% 1,000 ML IV SCH (06:25)
[2020-05-13 08:10] VITALS: BP 121/56
[2020-05-13] MEDS: ASPIRIN EC 325 MG TABLET PO SCH (08:31)
[2020-05-13] MEDS: QUEtiapine 25 MG TABLET PO SCH (08:31)
[2020-05-13] MEDS: PANTOPRAZOLE 40 MG TABLET PO SCH (08:32)
[2020-05-13] MEDS: ENOXAPARIN 40 MG/0.4 ML SYRINGE SUBCUT SCH (08:32)
[2020-05-13] MEDS: POTASSIUM CHLORIDE 20 MEQ TABLET PO PRN (08:32)
[2020-05-13] MEDS: DOCUSATE SODIUM 100 MG CAPSULE PO SCH (08:32)
[2020-05-13] MEDS: AZITHROMYCIN INJ 500 MG in SODIUM CHLORIDE 0.9% 250 ML IV SCH (08:33)
== END 2020-05-13 11:38 | DRG 876 ==
LOC: EDBD → EDUNIT# → N.EDINP 22:48 → N.ED 22:48 → N.EDINP 05-08 01:20 → N.TELEN 05-08 03:05
PROVIDERS: ADMIT Family Medicine; ATTEND Family Medicine